=== PATIENT | female | born 1950 | race Caucasian/White ===

== ENCOUNTER → 2017-12-24 | Outpatient (CLI) | payer MEDICARE | END | disposition home or self-care (01) | LOC: CT 11:23 | DX: M48.54XD Collapsed vertebra, not elsewhere classified, thoracic region, subsequent encounter for fracture with routine healing (principal); I77.810 Thoracic aortic ectasia; J43.9 Emphysema, unspecified; M51.34 Other intervertebral disc degeneration, thoracic region; I25.10 Atherosclerotic heart disease of native coronary artery without angina pectoris; X58.XXXD Exposure to other specified factors, subsequent encounter | CPT/HCPCS: 72128 ==